=== PATIENT | female | born 1990 | race Caucasian/White ===

== ENCOUNTER 2017-03-30 20:47 | Emergency (ER) | payer OTHER ==
[2017-03-30] MEDS ORDERED: Ondansetron 4 MG Tab.DIS PO ONE ×2 (21:01→22:20)
[2017-03-30] MEDS ORDERED: Dicyclomine 10 MG Cap PO ONE (21:05)
[2017-03-30] MEDS ORDERED: Acetaminophen 500 MG Tab PO ONE (21:05)
--- NOTE | 2017-03-30 21:11 | EDM.PDOC ---
ED HPI GENERAL MEDICAL PROBLEM - General Chief Complaint: Gastrointestinal Problem Stated Complaint: STOMACH PAIN Time Seen by Provider: 03/30/17 21:00 Source of Information: Reports: Patient, Old Records History Limitations: Reports: No Limitations - History of Present Illness INITIAL COMMENTS - FREE TEXT/NARRATIVE: 26 yo female here with abdominal pain and nausea/vomiting. The pain began early this afternoon. The nausea and vomiting began after she attempted to eat dinner. No diarrhea. No fever. No hematemesis. Came from work to the ER. Onset: Today, Gradual Onset Date: 03/30/17 Duration: Hour(s):, Getting Worse Location: Reports: Abdomen Quality: Reports: Other (fullness.) Severity: Moderate Improves with: Reports: Other (vomiting) Worsens with: Reports: Eating Context: Reports: Other (unknown) Associated Symptoms: Reports: Nausea/Vomiting. 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) Right Upper Abdominal Pain Score (Numeric/FACES): 8 - Related Data Allergies Allergy/AdvReac Type Severity Reaction Status Date / Time Penicillins Allergy Hives Verified 03/30/17 21:03 Home Meds: Home Meds Multivitamin [Flintstones] 1 each PO DAILY 06/06/16 [History] Dicyclomine [Bentyl] 20 mg PO QIDACANDBED PRN #10 tablet 03/30/17 [Rx] Past Medical History - Past Health History Medical/Surgical History: Denies Medical/Surgical History Gastrointestinal History: Reports: Chronic Constipation Genitourinary History: Reports: Other (See Below) Other Genitourinary History: frequent UTI's 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: , 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 Psychiatric History: Reports: Anxiety Hematologic History: Reports: Anemia Other Dermatologic History: PUPS - Infectious Disease History Infectious Disease History: Reports: Chicken Pox - Past Surgical History HEENT Surgical History: Reports: Oral Surgery Female Surgical History: Reports: Section Social & Family History - Family History HEENT: Reports: Cataract, Glaucoma, Impaired Vision, Macular Degeneration Cardiac: Reports: Bypass, High Cholesterol, Hypertension, [place], Pacemaker Respiratory: Reports: Asthma, COPD, Cystic Fibrosis, Sleep Apnea GI: Reports: Chronic Constipation OBGYN: Reports: Other (See Below) Other OBGYN Family History: 5 C-SECTIONS FOR MOM Musculoskeletal: Reports: Arthritis, Back pain, Chronic, Fibromyalgia, Neck Pain , Chronic, Osteoporosis Neurological: Reports: CVA, Migraines, Seizure Psychiatric: Reports: Abuse, Victim of, ADD, ADHD, Anxiety, Bipolar, Depression , Emotional Problems, Mood Swings, OCD, Psych Hospitalization(s), PTSD, Suicide Attempt Endocrine/Metabolic: Reports: Diabetes, type II Hematologic: Reports: Other (See Below) Other Hematologic Family History: FACTOR 5 CARRIERS Oncologic: Reports: Breast, Other (See Below) Other Oncologic Family History: THROAT - Tobacco Use Smoking Status *Q: Current Every Day Smoker Years of Tobacco use: 9 Packs/Tins Daily: 0.5 Used Tobacco, but Quit: No Second Hand Smoke Exposure: No - Caffeine Use Caffeine Use: Reports: Coffee, Soda Other Caffeine Use: 3 x's a week - Alcohol Use Days Per Week of Alcohol Use: 0 - Recreational Drug Use Recreational Drug Use: No ED ROS GENERAL - Review of Systems Review Of Systems: See Below Constitutional: Denies: Fever, Chills, Decreased Appetite HEENT: Reports: No Symptoms Respiratory: Reports: No Symptoms Cardiovascular: Reports: No Symptoms Endocrine: Reports: No Symptoms GI/Abdominal: Reports: Abdominal Pain, Nausea, Vomiting. Denies: Black Stool, Bloody Stool, Constipation, Diarrhea, Decreased Appetite, Flatus, Hematemesis, Hematochezia, Melena : Reports: No Symptoms Musculoskeletal: Reports: No Symptoms Skin: Reports: No Symptoms Neurological: Reports: No Symptoms Psychiatric: Reports: No Symptoms ED EXAM, GI/ABD - Physical Exam Exam: See Below Exam Limited By: No Limitations General Appearance: Alert, WD/WN, No Apparent Distress Eyes: Bilateral: Normal Appearance Ears: Normal External Exam, Normal Canal, Hearing Grossly Normal, Normal TMs Nose: Normal Inspection, Normal Mucosa, No Blood Throat/Mouth: Normal Inspection, Normal Lips, Normal Teeth, Normal Gums, Normal Oropharynx, Normal Voice, No Airway Compromise Head: Atraumatic, Normocephalic Neck: Normal Inspection, Supple Respiratory/Chest: No Respiratory Distress, Lungs Clear, Normal Breath Sounds, No Accessory Muscle Use Cardiovascular: Regular Rate, Rhythm, No Edema GI/Abdominal Exam: Soft, No Distention, Tender (diffuse tenderness), Abnormal Bowel Sounds (somewhat increased.). No: Distended, Guarding, Rigid, Rebound Back Exam: Normal Inspection Extremities: Normal Inspection, Normal Range of Motion, Non-Tender, No Pedal Edema Neurological: Alert, Oriented, CN II-XII Intact, Normal Cognition, No Motor/ Sensory Deficits Psychiatric: Normal Affect, Normal Mood Skin Exam: Warm, Dry, Intact, Normal Color, No Rash Lymphatic: No Adenopathy Course - Vital Signs Text/Narrative:: Zofran ODT 4 mg SL, acetaminophen 1000 mg po, dicyclomine 20 mg po Orthostats-negative Last Recorded V/S: Last Vital Signs Temp 36.3 C 03/30/17 21:04 Pulse 93 03/30/17 21:04 Resp 14 03/30/17 21:04 BP 110/67 03/30/17 21:04 Pulse Ox 100 03/30/17 21:04 Orthostatic Blood Pressure [ 116/64 Standing] Orthostatic Blood Pressure [ 117/85 Sitting] Orthostatic Blood Pressure [ 120/58 Supine] - Orders/Labs/Meds Orders: Active Orders 24 hr Category Date Time Status Orthostatic Vital Signs [RC] ASDIRECTED Care 03/30/17 21:04 Active Labs: Laboratory Tests 03/30/17 03/30/17 Range/Units 21:15 21:15 WBC 7.3 (4.5-12.0) X10-3/uL RBC 4.48 (3.23-5.20) x10(6)uL Hgb 13.0 D (11.5-15.5) g/dL Hct 38.0 D (30.0-51.3) % MCV 84.8 (80-96) fL MCH 29.0 (27.7-33.6) pg MCHC 34.3 (32.2-35.4) g/dL RDW 12.6 (11.5-15.5) % Plt Count 227 (125-369) X10(3)uL Sodium 139 (135-145) mmol/L Potassium 3.6 (3.5-5.3) mmol/L Chloride 107 (100-110) mmol/L Carbon Dioxide 25 (23-29) mmol/L BUN 15 (5-20) mg/dL Creatinine 0.8 (0.6-1.3) mg/dL Est Cr Clr Drug Dosing TNP Estimated GFR (MDRD) > 60 (>60) BUN/Creatinine Ratio 18.8 (9-20) Glucose 107 (80-116) mg/dL Calcium 9.1 (8.6-10.2) mg/dL Total Bilirubin 0.4 (0.1-1.3) mg/dL AST 19 D (5-27) IU/L ALT 19 D (14-26) IU/L Alkaline Phosphatase 70 (56-112) IU/L Total Protein 7.3 (6.0-8.0) g/dL Albumin 4.1 (3.5-5.2) g/dL Globulin 3.2 g/dL Albumin/Globulin Ratio 1.3 Meds: Medications Discontinued Medications Generic Name Dose Route Start Last Admin Trade Name Freq PRN Reason Stop Dose Admin Acetaminophen 1,000 mg 03/30/17 21:05 03/30/17 22:04 Tylenol Extra Strength PO 03/30/17 21:06 1,000 mg ONETIME ONE Administration Dicyclomine HCl 20 mg 03/30/17 21:05 03/30/17 22:04 Bentyl PO 03/30/17 21:06 20 mg ONETIME ONE Administration Dicyclomine HCl Confirm 03/30/17 22:03 03/30/17 22:12 Bentyl Administered 03/30/17 22:04 Not Given Dose 10 mg .ROUTE .STK-MED ONE Ondansetron HCl 4 mg 03/30/17 21:01 03/30/17 21:06 Zofran Odt PO 03/30/17 21:02 4 mg ONETIME ONE Administration Departure - Departure Time of Disposition: 22:25 Disposition: Home, Self-Care 01 Condition: Good Clinical Impression: Viral gastroenteritis Nausea and vomiting Qualifiers: Vomiting type: unspecified Vomiting Intractability: non-intractable Qualified Code(s): R11.2 - Nausea with vomiting, unspecified - Discharge Information Prescriptions: Dicyclomine [Bentyl] 20 mg PO QIDACANDBED PRN #10 tablet PRN Reason: Cramping Referrals: Grayson Gray MD [Primary Care Provider] - Forms: ED Department Discharge, ED Return to Work/School Form Care Plan Goals: Clear liquids only tonight, advance diet slowly as tolerated. Use Zofran every 6 hrs as needed for nausea. Take dicyclomine every 6 hrs for diarrhea/cramping. Take acetaminophen for pain or fever control. Rest. Recheck if worse. - My Orders Last 24 Hours: My Active Orders 03/30/17 21:04 Orthostatic Vital Signs [RC] ASDIRECTED - Assessment/Plan Last 24 Hours: My Active Orders 03/30/17 21:04 Orthostatic Vital Signs [RC] ASDIRECTED
[2017-03-30] MEDS ORDERED: Dicyclomine 10 MG Cap ONE (22:03)
[2017-03-30 22:27] VITALS: BP 106/59
== END 2017-03-30 22:26 | disposition home or self-care (01) ==
LOC: FB.ED 20:47
DX: A08.4 Viral intestinal infection, unspecified (principal); F17.210 Nicotine dependence, cigarettes, uncomplicated; Z87.440 Personal history of urinary (tract) infections; Z88.0 Allergy status to penicillin
CPT/HCPCS: 36415; 80053; 85027; 99284; A9270

== ENCOUNTER 2017-11-14 20:26 | Emergency (ER) | payer OTHER ==
[2017-11-14 20:47] VITALS: BP 104/39
[2017-11-14] MEDS ORDERED: Nitrofurantoin Monohydrate/Macrocrystalline 100 MG Cap PO ONE (21:10)
--- NOTE | 2017-11-14 23:40 | ER ---
DATE SEEN: 11/14/2017 REASON FOR VISIT: Dysuria. HISTORY OF PRESENT ILLNESS: This is a 27-year-old female with acute onset of dysuria tonight along with frequency and urgency of urination. In addition, she noticed a blood in the urine. REVIEW OF SYSTEMS: No abdominal pain, fever, chills. No nausea or vomiting. ALLERGIES: Penicillin. PHYSICAL EXAMINATION: GENERAL: She is well hydrated. VITAL SIGNS: Her blood pressure is normal. Pulse is 82. ABDOMEN: Soft. MENTAL STATUS: Alert. SKIN: No pallor or jaundice. LABORATORY DATA: Urine showed 20-30 white cells, moderate bacteria, large occult blood. IMPRESSION: Urinary tract infection. PLAN: Macrobid 100 mg b.i.d. x5 days, drink fluids. Return p.r.n. TIME SEEN: 2118 hours. /[id number] [id number]
== END 2017-11-14 21:14 | disposition home or self-care (01) ==
LOC: FB.ED 20:26
DX: N39.0 Urinary tract infection, site not specified (principal); Z88.0 Allergy status to penicillin
CPT/HCPCS: 81001; 87086; 87088; 87186; 99283; A9270-GY

== ENCOUNTER 2018-03-21 04:32 | Emergency (ER) | payer OTHER ==
[2018-03-21 04:50] VITALS: BP 102/31
--- NOTE | 2018-03-21 05:03 | EDM.PDOC ---
ED HPI GENERAL MEDICAL PROBLEM - General Chief Complaint: Back Pain or Injury Stated Complaint: BACKPAIN Time Seen by Provider: 03/21/18 04:32 Source of Information: Reports: Patient History Limitations: Reports: Physical Impairment (back pain) - History of Present Illness INITIAL COMMENTS - FREE TEXT/NARRATIVE: 27 y.o.w.f AB0 -20 weeks pregnent-came from work to the ed because of severe pain going from her back down to her right heal. No direct trauma. Pt has similar symptoms with her 1st . Pt is not able to walk and work because of her back pain. No N/V/V or any other acute medical issues. BP 102/81 RR 18 Pulse ox 100% Temp 36.8 Pulse 87 Onset Date: 03/21/18 Onset Time: 02:00 Duration: Hour(s):, Intermittent Location: Reports: Back, Lower Extremity, Right Quality: Reports: Ache, Burning, Stabbing, Throbbing Severity: Moderate Improves with: Reports: Rest Worsens with: Reports: Movement Context: Reports: Other (h/o back pain) Associated Symptoms: Reports: No Other Symptoms low back Pain Score (Numeric/FACES): 10 - Related Data Allergies Allergy/AdvReac Type Severity Reaction Status Date / Time Penicillins Allergy Hives Verified 03/21/18 04:43 Home Meds: Home Meds NK [No Known Home Meds] 11/14/17 [History] Past Medical History - Past Health History Medical/Surgical History: Denies Medical/Surgical History Gastrointestinal History: Reports: Chronic Constipation Genitourinary History: Reports: Other (See Below) Other Genitourinary History: frequent UTI's 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: , 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 Psychiatric History: Reports: Anxiety Hematologic History: Reports: Anemia Dermatologic History: Reports: Other (See Below) Other Dermatologic History: PUPS - Infectious Disease History Infectious Disease History: Reports: Chicken Pox - Past Surgical History HEENT Surgical History: Reports: Oral Surgery Female Surgical History: Reports: Section Social & Family History - Family History HEENT: Reports: Cataract, Glaucoma, Impaired Vision, Macular Degeneration Cardiac: Reports: Bypass, High Cholesterol, Hypertension, [place], Pacemaker Respiratory: Reports: Asthma, COPD, Cystic Fibrosis, Sleep Apnea GI: Reports: Chronic Constipation OBGYN: Reports: Other (See Below) Other OBGYN Family History: 5 C-SECTIONS FOR MOM Musculoskeletal: Reports: Arthritis, Back pain, Chronic, Fibromyalgia, Neck Pain , Chronic, Osteoporosis Neurological: Reports: CVA, Migraines, Seizure Psychiatric: Reports: Abuse, Victim of, ADD, ADHD, Anxiety, Bipolar, Depression , Emotional Problems, Mood Swings, OCD, Psych Hospitalization(s), PTSD, Suicide Attempt Endocrine/Metabolic: Reports: Diabetes, type II Hematologic: Reports: Other (See Below) Other Hematologic Family History: FACTOR 5 CARRIERS Oncologic: Reports: Breast, Other (See Below) Other Oncologic Family History: THROAT - Tobacco Use Smoking Status *Q: Current Every Day Smoker Years of Tobacco use: 15 Packs/Tins Daily: 0.5 - Caffeine Use Caffeine Use: Reports: Soda Other Caffeine Use: 3 x's a week - Recreational Drug Use Recreational Drug Use: No ED ROS GENERAL - Review of Systems Review Of Systems: See Below Constitutional: Reports: No Symptoms HEENT: Reports: No Symptoms Respiratory: Reports: No Symptoms Cardiovascular: Reports: No Symptoms Endocrine: Reports: No Symptoms GI/Abdominal: Reports: No Symptoms : Reports: No Symptoms Musculoskeletal: Reports: Back Pain Skin: Reports: No Symptoms Neurological: Reports: No Symptoms Psychiatric: Reports: No Symptoms Hematologic/Lymphatic: Reports: No Symptoms Immunologic: Reports: No Symptoms ED EXAM,LOWER BACK PAIN/INJURY - Physical Exam Exam: See Below Exam Limited By: No Limitations General Appearance: Alert, WD/WN, Mild Distress Eye Exam: Bilateral Eye: Normal Inspection Ears: Normal External Exam Nose: Normal Inspection Throat/Mouth: Normal Inspection, Normal Lips, Normal Voice, No Airway Compromise Head: Atraumatic, Normocephalic Neck: Normal Inspection, Supple, Non-Tender, Full Range of Motion Respiratory/Chest: No Respiratory Distress, Lungs Clear, Normal Breath Sounds, No Accessory Muscle Use, Chest Non-Tender Cardiovascular: Normal Peripheral Pulses, Regular Rate, Rhythm, No Edema, No Gallop, No JVD, No Murmur, No Rub GI/Abdominal: Normal Bowel Sounds, Soft, Non-Tender, No Organomegaly, No Distention, No Abnormal Bruit, No Mass, Pelvis Stable (Female) Exam: Deferred Rectal (Female) Exam: Deferred Back Exam: Normal Inspection, Decreased Range of Motion, Paraspinal Tenderness Extremities: Normal Inspection Neurological: Alert, Normal Mood/Affect, CN II-XII Intact, Abnormal Gait (due to back pain), Straight Leg Raise (R) Psychiatric: Normal Affect, Normal Mood Skin Exam: Warm, Dry, Intact, Normal Color, No Rash Lymphatic: No Adenopathy Course - Vital Signs Text/Narrative:: 27 y.o.w.f AB0 -20 weeks pregnent-came from work to the ed because of severe pain going from her back down to her right heal. No direct trauma. Pt has similar symptoms with her 1st . Pt is not able to walk and work because of her back pain. No N/V/V or any other acute medical issues. BP 102/81 RR 18 Pulse ox 100% Temp 36.8 Pulse 87 PE: 27 y.o.w.f with low back pain going own her right leg Impression: back pain with sciatica, 20 weeks Tx: Ice Reexam: improved Plan: D/C with instructions Last Recorded V/S: Last Vital Signs Temp 36.6 C 03/21/18 04:32 Pulse 84 03/21/18 04:32 Resp 18 03/21/18 04:32 BP 102/31 L 03/21/18 04:32 Pulse Ox 100 03/21/18 04:32 Departure - Departure Time of Disposition: 05:03 Disposition: Home, Self-Care 01 Condition: Good Clinical Impression: Back pain affecting in second trimester Back pain Qualifiers: Back pain location: low back pain Chronicity: unspecified Back pain laterality : right Sciatica presence: with sciatica Sciatica laterality: sciatica of right side Qualified Code(s): M54.41 - Lumbago with sciatica, right side - Discharge Information Instructions: Back Pain in , Back Pain, Adult, [id number] Referrals: Grayson Gray MD [Primary Care Provider] - Forms: ED Department Discharge, ED Return to Work/School Form Additional Instructions: Please apply ice to lower back, please take tylenol for pain, elevate legs, Please f/u with your PMD in next 3 days. Please come back if your symptoms get worse acutely
== END 2018-03-21 05:14 | disposition home or self-care (01) ==
LOC: FB.ED 04:32
DX: O99.89 Other specified diseases and conditions complicating pregnancy, childbirth and the puerperium (principal); M54.41 Lumbago with sciatica, right side; E11.9 Type 2 diabetes mellitus without complications; I10 Essential (primary) hypertension; J44.9 Chronic obstructive pulmonary disease, unspecified; F17.210 Nicotine dependence, cigarettes, uncomplicated; Z3A.20 20 weeks gestation of pregnancy; Z88.0 Allergy status to penicillin
CPT/HCPCS: 99283

== ENCOUNTER 2018-05-31 20:06 | Emergency (ER) | payer OTHER, MEDICAID ==
[2018-05-31] MEDS ORDERED: Lactated Ringers 1,000 ML IV ONE (22:08)
[2018-05-31] MEDS ORDERED: Sodium Chloride 0.9% 10 ML Syringe FLUSH PRN (22:09)
--- NOTE | 2018-05-31 22:14 | EDM.PDOC ---
ED HPI GENERAL MEDICAL PROBLEM - General Chief Complaint: Respiratory Problem Stated Complaint: SOB Time Seen by Provider: 05/31/18 22:10 Source of Information: Reports: Patient History Limitations: Reports: No Limitations - History of Present Illness INITIAL COMMENTS - FREE TEXT/NARRATIVE: Near syncopal episode yesterday and today. Has had N/V x 3 days. No diarrhea. Denies abdominal pain. Had small amount of pink blood per rectum 2 days ago. Denies headache or chest pain. Patient is A3, currently @30 wks with EDC of 08/04/19. Patient reports decreased movement. 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 Musculoskeletal History: Reports: Other (See Below) Other Musculoskeletal History: left hip goes out,sl curvature of spine ,hx of l foot fx Psychiatric History: Reports: Anxiety Hematologic History: Reports: Anemia Dermatologic History: Reports: Other (See Below) Other Dermatologic History: PUPS - Infectious Disease History Infectious Disease History: Reports: Chicken Pox - Past Surgical History HEENT Surgical History: Reports: Oral Surgery Female Surgical History: Reports: Section Social & Family History - Family History Family Medical History: Noncontributory HEENT: Reports: Cataract, Glaucoma, Impaired Vision, Macular Degeneration Cardiac: Reports: Bypass, High Cholesterol, Hypertension, [place], Pacemaker Respiratory: Reports: Asthma, COPD, Cystic Fibrosis, Sleep Apnea GI: Reports: Chronic Constipation OBGYN: Reports: Other (See Below) Other OBGYN Family History: 5 C-SECTIONS FOR MOM Musculoskeletal: Reports: Arthritis, Back pain, Chronic, Fibromyalgia, Neck Pain , Chronic, Osteoporosis Neurological: Reports: CVA, Migraines, Seizure Psychiatric: Reports: Abuse, Victim of, ADD, ADHD, Anxiety, Bipolar, Depression , Emotional Problems, Mood Swings, OCD, Psych Hospitalization(s), PTSD, Suicide Attempt Endocrine/Metabolic: Reports: Diabetes, type II Hematologic: Reports: Other (See Below) Other Hematologic Family History: FACTOR 5 CARRIERS Oncologic: Reports: Breast, Other (See Below) Other Oncologic Family History: THROAT - Tobacco Use Smoking Status *Q: Current Every Day Smoker Tobacco Use Within Last Twelve Months: Cigarettes - Caffeine Use Caffeine Use: Reports: Coffee Other Caffeine Use: 1-2/day - Alcohol Use Alcohol Use History: No - Recreational Drug Use Recreational Drug Use: No ED ROS GENERAL - Review of Systems Review Of Systems: ROS reveals no pertinent complaints other than HPI. ED EXAM, GENERAL - Physical Exam Exam: See Below Exam Limited By: No Limitations General Appearance: Alert, WD/WN, No Apparent Distress Eye Exam: Bilateral Eye: EOMI, PERRL Ears: Normal External Exam, Normal Canal, Normal TMs Nose: Normal Inspection, Normal Mucosa Throat/Mouth: Normal Inspection, Normal Lips, Normal Oropharynx, Normal Voice, No Airway Compromise Head: Atraumatic, Normocephalic Neck: Normal Inspection, Supple Respiratory/Chest: No Respiratory Distress, Lungs Clear, Normal Breath Sounds Cardiovascular: Regular Rate, Rhythm, No Murmur GI/Abdominal: Non-Tender Back Exam: Full Range of Motion Extremities: Normal Range of Motion Neurological: Alert, No Motor/Sensory Deficits Skin Exam: Warm, Dry, Intact EKG INTERPRETATION EKG Date: 05/31/18 Time: 22:35 Rhythm: NSR Rate (Beats/Min): 66 [place]: Normal P-Wave: Present QRS: Normal ST-T: Normal QT: Normal Course - Vital Signs Last Recorded V/S: Last Vital Signs Temp 36.8 C 05/31/18 20:06 Pulse 91 05/31/18 20:06 Resp 18 05/31/18 20:06 BP 96/63 05/31/18 20:06 Pulse Ox 99 05/31/18 20:06 Orthostatic Blood Pressure [ 98/50 Standing] Orthostatic Blood Pressure [ 97/52 Sitting] Orthostatic Blood Pressure [ 96/60 Supine] - Orders/Labs/Meds Orders: Active Orders 24 hr Category Date Time Status EKG Documentation Completion [RC] ASDIRECTED Care 05/31/18 22:09 Active Sodium Chloride 0.9% [Saline Flush] Med 05/31/18 22:09 Active 10 ml FLUSH ASDIRECTED PRN Saline Lock Insert [OM.PC] Routine Oth 05/31/18 22:09 Ordered EKG 12 Lead [EK] Stat Ther 05/31/18 22:08 Ordered Medication Orders Sodium Chloride (Saline Flush) 10 ml FLUSH ASDIRECTED PRN PRN Reason: Keep Vein Open Last Admin: 05/31/18 22:31 Dose: 10 ml Labs: Laboratory Tests 05/31/18 05/31/18 05/31/18 Range/Units 22:15 22:15 22:55 WBC 10.2 (4.5-12.0) X10-3/uL RBC 3.37 (3.23-5.20) x10(6)uL Hgb 10.3 L (11.5-15.5) g/dL Hct 30.0 (30.0-51.3) % MCV 88.9 (80-96) fL MCH 30.5 (27.7-33.6) pg MCHC 34.2 (32.2-35.4) g/dL RDW 12.2 (11.5-15.5) % Plt Count 241 (125-369) X10(3)uL MPV 8.0 (7.4-10.4) fL Neut % (Auto) 72.8 (46-82) % Lymph % (Auto) 17.9 (13-37) % [place] % (Auto) 6.5 (4-12) % Eos % (Auto) 3 (1.0-5.0) % Baso % (Auto) 0 (0-2) % Neut # (Auto) 7.4 (1.6-8.3) # Lymph # (Auto) 1.8 (0.6-5.0) # [place] # (Auto) 0.7 (0.0-1.3) # Eos # (Auto) 0.3 (0.0-0.8) # Baso # (Auto) 0.0 (0.0-0.2) # Sodium 137 (135-145) mmol/L Potassium 3.7 (3.5-5.3) mmol/L Chloride 105 (100-110) mmol/L Carbon Dioxide 24 (21-32) mmol/L BUN 10 (7-18) mg/dL Creatinine 0.5 L (0.55-1.02) mg/dL Est Cr Clr Drug Dosing TNP Estimated GFR (MDRD) > 60 (>60) BUN/Creatinine Ratio 20.0 (9-20) Glucose 113 (80-116) mg/dL Calcium 8.4 L (8.6-10.2) mg/dL Total Bilirubin 0.2 (0.1-1.3) mg/dL AST 14 (5-25) IU/L ALT 22 (12-36) U/L Alkaline Phosphatase 107 (56-112) IU/L Total Protein 6.3 (6.0-8.0) g/dL Albumin 2.3 L (3.5-5.2) g/dL Globulin 4.0 g/dL Albumin/Globulin Ratio 0.6 Urine Color Yellow (YELLOW) Urine Appearance Slightly cloudy (CLEAR) Urine pH 5.0 (5.0-6.5) Ur Specific [place] 1.020 (1.010-1.025) Urine Protein Negative (NEGATIVE) mg/dL Urine Glucose (UA) Normal (NEGATIVE) mg/dL Urine Ketones Negative (NEGATIVE) mg/dL Urine Occult Blood Negative (NEGATIVE) Urine Nitrite Negative (NEGATIVE) Urine Bilirubin Small H (NEGATIVE) Urine Urobilinogen 1 H (NEGATIVE) mg/dL Ur Leukocyte Esterase Negative (NEGATIVE) Urine RBC 0-5 (0) Urine WBC 0-5 (0) Ur Squamous Epith Cells Few H (NS,R,O) Amorphous Sediment Moderate Urine Bacteria Few H (NS) Urine Mucus Moderate H (NS) Meds: Medications Generic Name Dose Route Start Last Admin Trade Name Frelidia PRN Reason Stop Dose Admin Sodium Chloride 10 ml 05/31/18 22:09 05/31/18 22:31 Saline Flush FLUSH 10 ml ASDIRECTED PRN Administration Keep Vein Open Discontinued Medications Generic Name Dose Route Start Last Admin Trade Name Freq PRN Reason Stop Dose Admin Lactated Ringer's 1,000 mls @ 999 mls/hr 05/31/18 22:08 05/31/18 22:31 Ringers, Lactated IV 05/31/18 23:08 999 mls/hr BOLUS ONE Administration - Re-Assessments/Exams Free Text/Narrative Re-Assessment/Exam: 05/31/18 23:18 Reactive nonstress test Departure - Departure Time of Disposition: 23:18 Disposition: Home, Self-Care 01 Condition: Good Clinical Impression: Near syncope Qualifiers: Weeks of gestation: 39 weeks Qualified Code(s): Z3A.39 - 39 weeks gestation of - Discharge Information *PRESCRIPTION DRUG MONITORING PROGRAM REVIEWED*: No *COPY OF PRESCRIPTION DRUG MONITORING REPORT IN PATIENT BRENDA: Not Applicable Instructions: Third Trimester of , [id number], Near-Syncope, Easy-to -Read Referrals: Grayson Gray MD [Primary Care Provider] - Forms: ED Department Discharge Additional Instructions: Rest, drink plenty of fluids, follow up with your OB doctor in 2 days. Return to the ER as needed. - My Orders Last 24 Hours: My Active Orders 05/31/18 22:08 EKG 12 Lead [EK] Stat 05/31/18 22:09 EKG Documentation Completion [RC] ASDIRECTED Sodium Chloride 0.9% [Saline Flush] 10 ml FLUSH ASDIRECTED PRN Saline Lock Insert [OM.PC] Routine - Assessment/Plan Last 24 Hours: My Active Orders 05/31/18 22:08 EKG 12 Lead [EK] Stat 05/31/18 22:09 EKG Documentation Completion [RC] ASDIRECTED Sodium Chloride 0.9% [Saline Flush] 10 ml FLUSH ASDIRECTED PRN Saline Lock Insert [OM.PC] Routine
[2018-05-31 23:44] VITALS: BP 102/59
== END 2018-05-31 23:39 | disposition home or self-care (01) ==
LOC: FB.ED 20:06
DX: O99.89 Other specified diseases and conditions complicating pregnancy, childbirth and the puerperium (principal); R55 Syncope and collapse; O99.333 Smoking (tobacco) complicating pregnancy, third trimester; F17.210 Nicotine dependence, cigarettes, uncomplicated; E11.9 Type 2 diabetes mellitus without complications; J44.9 Chronic obstructive pulmonary disease, unspecified; I10 Essential (primary) hypertension; Z88.0 Allergy status to penicillin; Z3A.39 39 weeks gestation of pregnancy
CPT/HCPCS: 36415; 80053; 81001; 85025; 93005; 96360; 99211; 99285; J7050; J7120

== ENCOUNTER 2019-02-19 13:51 | Emergency (ER) | payer BC, MEDICAID, OTHER ==
[2019-02-19] MEDS ORDERED: Sodium Chloride 0.9% 10 ML Syringe FLUSH PRN (14:23)
--- NOTE | 2019-02-19 14:29 | EDM.PDOC ---
ED HPI GENERAL MEDICAL PROBLEM - General Chief Complaint: Cardiovascular Problem Stated Complaint: CHEST PAIN & BACK PAIN Time Seen by Provider: 02/19/19 14:24 Source of Information: Reports: Patient History Limitations: Reports: No Limitations - History of Present Illness INITIAL COMMENTS - FREE TEXT/NARRATIVE: Presents with 2 weeks of left sided pleuritic chest pain radiating to mid back and left upper arm, associated with intermittent left arm numbness. Denies SOB. She has had a productive cough for 2 weeks, 6 month old son was recently diagnosed with pneumonia. No prior h/o CAD or DVT/PE. Mother and Aunt have Factor V Leiden deficiency. Duration: Week(s): (2) Location: Reports: Chest, Back, Upper Extremity, Left Quality: Reports: Dull Severity: Moderate Left Chest Pain Score (Numeric/FACES): 4 - Related Data Allergies Allergy/AdvReac Type Severity Reaction Status Date / Time Penicillins Allergy Hives Verified 05/31/18 21:33 Home Meds: Home Meds Pnv with Ca,No.72/Iron/Fa [Pnv Plus Multivit Tab] 1 tab PO DAILY [History] Pantoprazole Sodium 40 mg PO DAILY 08/03/18 [History] Azithromycin [Zithromax] 250 - 500 mg PO DAILY 5 Days #6 tab 02/19/19 [Rx] Ibuprofen 600 mg PO Q6H PRN #20 tablet 02/19/19 [Rx] Past Medical History Cardiovascular History: Denies: Blood Clots/VTE/DVT, CAD Gastrointestinal History: Reports: Other (See Below) Other Gastrointestinal History: had some pink rectal discharge ended 2 days ago Genitourinary History: Reports: Other (See Below) Other Genitourinary History: frequent UTI's 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 neck gets pinched and i can't crack it Psychiatric History: Reports: Anxiety Hematologic History: Reports: Anemia Dermatologic History: Reports: Other (See Below) Other Dermatologic History: PUPS - Infectious Disease History Infectious Disease History: Reports: Chicken Pox - Past Surgical History HEENT Surgical History: Reports: Oral Surgery Female Surgical History: Reports: Section Social & Family History - Family History Family Medical History: Noncontributory HEENT: Reports: Cataract, Glaucoma, Impaired Vision, Macular Degeneration Cardiac: Reports: Bypass, High Cholesterol, Hypertension, [place], Pacemaker Respiratory: Reports: Asthma, COPD, Cystic Fibrosis, Sleep Apnea GI: Reports: Chronic Constipation OBGYN: Reports: Other (See Below) Other OBGYN Family History: 5 C-SECTIONS FOR MOM Musculoskeletal: Reports: Arthritis, Back pain, Chronic, Fibromyalgia, Neck Pain , Chronic, Osteoporosis Neurological: Reports: CVA, Migraines, Seizure Psychiatric: Reports: Abuse, Victim of, ADD, ADHD, Anxiety, Bipolar, Depression , Emotional Problems, Mood Swings, OCD, Psych Hospitalization(s), PTSD, Suicide Attempt Endocrine/Metabolic: Reports: Diabetes, type II Hematologic: Reports: Other (See Below) Other Hematologic Family History: FACTOR 5 CARRIERS Oncologic: Reports: Breast, Other (See Below) Other Oncologic Family History: THROAT - Tobacco Use Smoking Status *Q: Current Every Day Smoker Tobacco Use Within Last Twelve Months: Cigarettes - Caffeine Use Caffeine Use: Reports: Coffee Other Caffeine Use: occasional ED ROS GENERAL - Review of Systems Review Of Systems: ROS reveals no pertinent complaints other than HPI. ED EXAM, GENERAL - Physical Exam Exam: See Below Exam Limited By: No Limitations General Appearance: Alert, WD/WN, No Apparent Distress Ears: Normal External Exam Nose: Normal Inspection Throat/Mouth: No Airway Compromise Head: Atraumatic, Normocephalic Neck: Normal Inspection, Full Range of Motion Respiratory/Chest: No Respiratory Distress, Lungs Clear, Normal Breath Sounds Cardiovascular: Regular Rate, Rhythm, No Edema, No Murmur, Other (No chest wall tenderness) Peripheral Pulses: 2+: Radial (L) GI/Abdominal: No Distention Back Exam: Normal Inspection, Full Range of Motion. No: CVA Tenderness (R), CVA Tenderness (L), Paraspinal Tenderness, Vertebral Tenderness Extremities: Normal Inspection, Normal Range of Motion, Non-Tender, No Pedal Edema, Normal Capillary Refill Neurological: Alert, Normal Cognition, No Motor/Sensory Deficits Psychiatric: Normal Affect, Normal Mood Skin Exam: Warm, Dry, Intact, Normal Color EKG INTERPRETATION EKG Date: 02/19/19 Time: 14:09 Rhythm: NSR Rate (Beats/Min): 79 [place]: Normal P-Wave: Present QRS: Normal ST-T: Normal QT: Normal Course - Vital Signs Last Recorded V/S: Last Vital Signs Temp 36.6 C 02/19/19 13:51 Pulse 84 02/19/19 13:51 Resp 18 02/19/19 13:51 BP 127/63 02/19/19 13:51 Pulse Ox 98 02/19/19 13:51 - Orders/Labs/Meds Orders: Active Orders 24 hr Category Date Time Status EKG Documentation Completion [RC] ASDIRECTED Care 02/19/19 14:16 Active CXR [Chest 1V Frontal] [CR] Stat Exams 02/19/19 14:22 Taken Sodium Chloride 0.9% [Saline Flush] Med 02/19/19 14:23 Active 10 ml FLUSH ASDIRECTED PRN Saline Lock Insert [OM.PC] Routine Oth 02/19/19 14:23 Ordered EKG 12 Lead [EK] Stat Ther 02/19/19 14:15 Ordered Medication Orders Sodium Chloride (Saline Flush) 10 ml FLUSH ASDIRECTED PRN PRN Reason: Keep Vein Open Last Admin: 02/19/19 15:34 Dose: 10 ml Labs: Laboratory Tests 02/19/19 02/19/19 02/19/19 Range/Units 14:40 14:40 14:40 WBC 9.8 (4.5-12.0) X10-3/uL RBC 4.49 (3.23-5.20) x10(6)uL Hgb 13.5 (11.5-15.5) g/dL Hct 39.1 D (30.0-51.3) % MCV 87.0 (80-96) fL MCH 30.0 (27.7-33.6) pg MCHC 34.5 (32.2-35.4) g/dL RDW 12.5 (11.5-15.5) % Plt Count 256 (125-369) X10(3)uL MPV 8.4 (7.4-10.4) fL Neut % (Auto) 74.5 (46-82) % Lymph % (Auto) 17.6 (13-37) % [place] % (Auto) 5.2 (4-12) % Eos % (Auto) 2 (1.0-5.0) % Baso % (Auto) 0 (0-2) % Neut # (Auto) 7.4 (1.6-8.3) # Lymph # (Auto) 1.7 (0.6-5.0) # [place] # (Auto) 0.5 (0.0-1.3) # Eos # (Auto) 0.2 (0.0-0.8) # Baso # (Auto) 0.0 (0.0-0.2) # PT 9.3 (8.7-11.1) INR 0.96 (0.89-1.13) APTT 25.1 (24.4-33.2) SECONDS D-Dimer, Quantitative 0.19 (0.0-0.59) mg/LFEU Sodium 143 (135-145) mmol/L Potassium 4.0 (3.5-5.3) mmol/L Chloride 107 (100-110) mmol/L Carbon Dioxide 26 (21-32) mmol/L BUN 15 (7-18) mg/dL Creatinine 0.9 (0.55-1.02) mg/dL Est Cr Clr Drug Dosing 73.60 mL/min Estimated GFR (MDRD) > 60 (>60) BUN/Creatinine Ratio 16.7 (9-20) Glucose 126 H (80-116) mg/dL Calcium 8.7 (8.6-10.2) mg/dL Total Bilirubin 0.2 (0.1-1.3) mg/dL AST 24 D (5-25) IU/L ALT 45 H D (12-36) U/L Alkaline Phosphatase 94 (56-112) IU/L Troponin I (<0.017-0.056) ng/mL Total Protein 6.8 (6.0-8.0) g/dL Albumin 3.5 (3.5-5.2) g/dL Globulin 3.3 g/dL Albumin/Globulin Ratio 1.1 Urine Color (YELLOW) Urine Appearance (CLEAR) Urine pH (5.0-6.5) Ur Specific [place] (1.010-1.025) Urine Protein (NEGATIVE) mg/dL Urine Glucose (UA) (NORMAL) mg/dL Urine Ketones (NEGATIVE) mg/dL Urine Occult Blood (NEGATIVE) Urine Nitrite (NEGATIVE) Urine Bilirubin (NEGATIVE) Urine Urobilinogen (NEGATIVE) mg/dL Ur Leukocyte Esterase (NEGATIVE) Urine RBC (0-5) Urine WBC (0-5) Ur Squamous Epith Cells (NS,R,O) Urine Bacteria (NS) Urine HCG, Qual (NEGATIVE) 02/19/19 02/19/19 02/19/19 Range/Units 14:40 14:45 14:45 WBC (4.5-12.0) X10-3/uL RBC (3.23-5.20) x10(6)uL Hgb (11.5-15.5) g/dL Hct (30.0-51.3) % MCV (80-96) fL MCH (27.7-33.6) pg MCHC (32.2-35.4) g/dL RDW (11.5-15.5) % Plt Count (125-369) X10(3)uL MPV (7.4-10.4) fL Neut % (Auto) (46-82) % Lymph % (Auto) (13-37) % [place] % (Auto) (4-12) % Eos % (Auto) (1.0-5.0) % Baso % (Auto) (0-2) % Neut # (Auto) (1.6-8.3) # Lymph # (Auto) (0.6-5.0) # [place] # (Auto) (0.0-1.3) # Eos # (Auto) (0.0-0.8) # Baso # (Auto) (0.0-0.2) # PT (8.7-11.1) INR (0.89-1.13) APTT (24.4-33.2) SECONDS D-Dimer, Quantitative (0.0-0.59) mg/LFEU Sodium (135-145) mmol/L Potassium (3.5-5.3) mmol/L Chloride (100-110) mmol/L Carbon Dioxide (21-32) mmol/L BUN (7-18) mg/dL Creatinine (0.55-1.02) mg/dL Est Cr Clr Drug Dosing mL/min Estimated GFR (MDRD) (>60) BUN/Creatinine Ratio (9-20) Glucose (80-116) mg/dL Calcium (8.6-10.2) mg/dL Total Bilirubin (0.1-1.3) mg/dL AST (5-25) IU/L ALT (12-36) U/L Alkaline Phosphatase (56-112) IU/L Troponin I < 0.017 L (<0.017-0.056) ng/mL Total Protein (6.0-8.0) g/dL Albumin (3.5-5.2) g/dL Globulin g/dL Albumin/Globulin Ratio Urine Color Yellow (YELLOW) Urine Appearance Clear (CLEAR) Urine pH 5.0 (5.0-6.5) Ur Specific [place] 1.020 (1.010-1.025) Urine Protein Negative (NEGATIVE) mg/dL Urine Glucose (UA) Normal (NORMAL) mg/dL Urine Ketones 15 H (NEGATIVE) mg/dL Urine Occult Blood Negative (NEGATIVE) Urine Nitrite Negative (NEGATIVE) Urine Bilirubin Negative (NEGATIVE) Urine Urobilinogen 1 H (NEGATIVE) mg/dL Ur Leukocyte Esterase Negative (NEGATIVE) Urine RBC 0-5 (0-5) Urine WBC 0-5 (0-5) Ur Squamous Epith Cells Moderate H (NS,R,O) Urine Bacteria Few H (NS) Urine HCG, Qual Negative (NEGATIVE) Meds: Medications Generic Name Dose Route Start Last Admin Trade Name Freq PRN Reason Stop Dose Admin Sodium Chloride 10 ml 02/19/19 14:23 02/19/19 15:34 Saline Flush FLUSH 10 ml ASDIRECTED PRN Administration Keep Vein Open Discontinued Medications Generic Name Dose Route Start Last Admin Trade Name Freq PRN Reason Stop Dose Admin Ketorolac Tromethamine 30 mg 02/19/19 15:18 02/19/19 15:33 Toradol IVPUSH 02/19/19 15:19 30 mg ONETIME ONE Administration - Radiology Interpretation Free Text/Narrative:: CXR: No acute process - Re-Assessments/Exams Free Text/Narrative Re-Assessment/Exam: 02/19/19 15:59 Symptoms improved after Toradol 30 mg IV. Departure - Departure Time of Disposition: 15:59 Disposition: Home, Self-Care 01 Condition: Good Clinical Impression: Bronchitis, Pleurisy Prescriptions: Azithromycin [Zithromax] 250 - 500 mg PO DAILY 5 Days #6 tab Ibuprofen 600 mg PO Q6H PRN #20 tablet PRN Reason: Pain Instructions: Pleurisy, [id number], Acute Bronchitis, Adult Referrals: Grayson Gray MD [Primary Care Provider] - Forms: ED Department Discharge Additional Instructions: Fill prescriptions for Zithromax and Ibuprofen and take as directed. Follow up with your primary physician in 3-4 days if symptoms don't improve. Return to the ER if symptoms worsen. - My Orders Last 24 Hours: My Active Orders 02/19/19 14:15 EKG 12 Lead [EK] Stat 02/19/19 14:16 EKG Documentation Completion [RC] ASDIRECTED 02/19/19 14:22 CXR [Chest 1V Frontal] [CR] Stat 02/19/19 14:23 Sodium Chloride 0.9% [Saline Flush] 10 ml FLUSH ASDIRECTED PRN Saline Lock Insert [OM.PC] Routine - Assessment/Plan Last 24 Hours: My Active Orders 02/19/19 14:15 EKG 12 Lead [EK] Stat 02/19/19 14:16 EKG Documentation Completion [RC] ASDIRECTED 02/19/19 14:22 CXR [Chest 1V Frontal] [CR] Stat 02/19/19 14:23 Sodium Chloride 0.9% [Saline Flush] 10 ml FLUSH ASDIRECTED PRN Saline Lock Insert [OM.PC] Routine
[2019-02-19] MEDS ORDERED: Ketorolac 30 MG/ML SDV IVPUSH ONE (15:18)
[2019-02-19 21:19] VITALS: BP 102/40
== END 2019-02-19 16:30 | disposition home or self-care (01) ==
LOC: FB.ED 13:51
DX: J40 Bronchitis, not specified as acute or chronic (principal); R09.1 Pleurisy; F41.9 Anxiety disorder, unspecified; Z88.0 Allergy status to penicillin; Z79.899 Other long term (current) drug therapy
CPT/HCPCS: 36415; 71045; 80053; 81001; 81025; 84484; 85025; 85379; 85610; 85730; 93005; 96374; 99284; J1885

== ENCOUNTER 2019-06-13 19:04 | Emergency (ER) | payer BC, MEDICAID ==
[2019-06-13 19:21] VITALS: BP 104/63; PULSE 91
--- NOTE | 2019-06-13 19:41 | EDM.PDOC ---
ED HPI GENERAL MEDICAL PROBLEM - General Chief Complaint: General Stated Complaint: COUGH Time Seen by Provider: 06/13/19 19:25 Source of Information: Reports: Patient - History of Present Illness INITIAL COMMENTS - FREE TEXT/NARRATIVE: Patient is a 29 YO WF who presented to the ED because of cough and cold productive of yellowish phlegm for 2 weeks. She denies any fever or chills or dyspnea. - Related Data Allergies Allergy/AdvReac Type Severity Reaction Status Date / Time Penicillins Allergy Hives Verified 06/13/19 19:34 Home Meds: Home Meds Pnv with Ca,No.72/Iron/Fa [Pnv Plus Multivit Tab] 1 tab PO DAILY [History] Pantoprazole Sodium 40 mg PO DAILY 08/03/18 [History] Azithromycin [Zithromax] 250 - 500 mg PO DAILY 5 Days #6 tab 02/19/19 [Rx] Ibuprofen 600 mg PO Q6H PRN #20 tablet 02/19/19 [Rx] Azithromycin [Zithromax] 250 mg PO DAILY #6 tab 06/13/19 [Rx] Codeine/guaiFENesin [guaiFENesin-Codeine Syrup] 10 ml PO Q6H PRN #120 ml [Rx] Past Medical History Gastrointestinal History: Reports: Other (See Below) Other Gastrointestinal History: had some pink rectal discharge ended 2 days ago Genitourinary History: Reports: Other (See Below) Other Genitourinary History: frequent UTI's 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 neck gets pinched and i can't crack it Psychiatric History: Reports: Anxiety Hematologic History: Reports: Anemia Dermatologic History: Reports: Other (See Below) Other Dermatologic History: PUPS - Infectious Disease History Infectious Disease History: Reports: Chicken Pox - Past Surgical History HEENT Surgical History: Reports: Oral Surgery Female Surgical History: Reports: Section Social & Family History - Family History Family Medical History: Noncontributory HEENT: Reports: Cataract, Glaucoma, Impaired Vision, Macular Degeneration Cardiac: Reports: Bypass, High Cholesterol, Hypertension, [place], Pacemaker Respiratory: Reports: Asthma, COPD, Cystic Fibrosis, Sleep Apnea GI: Reports: Chronic Constipation OBGYN: Reports: Other (See Below) Other OBGYN Family History: 5 C-SECTIONS FOR MOM Musculoskeletal: Reports: Arthritis, Back pain, Chronic, Fibromyalgia, Neck Pain , Chronic, Osteoporosis Neurological: Reports: CVA, Migraines, Seizure Psychiatric: Reports: Abuse, Victim of, ADD, ADHD, Anxiety, Bipolar, Depression , Emotional Problems, Mood Swings, OCD, Psych Hospitalization(s), PTSD, Suicide Attempt Endocrine/Metabolic: Reports: Diabetes, type II Hematologic: Reports: Other (See Below) Other Hematologic Family History: FACTOR 5 CARRIERS Oncologic: Reports: Breast, Other (See Below) Other Oncologic Family History: THROAT - Tobacco Use Smoking Status *Q: Current Every Day Smoker Years of Tobacco use: 10 Packs/Tins Daily: 0.5 - Caffeine Use Caffeine Use: Reports: Coffee Other Caffeine Use: occasional ED ROS GENERAL - Review of Systems Review Of Systems: See Below Constitutional: Reports: No Symptoms HEENT: Reports: No Symptoms Respiratory: Reports: Cough, Sputum. Denies: Shortness of Breath, Wheezing Cardiovascular: Reports: No Symptoms Endocrine: Reports: No Symptoms GI/Abdominal: Reports: No Symptoms : Reports: No Symptoms Musculoskeletal: Reports: No Symptoms Skin: Reports: No Symptoms ED EXAM, GENERAL - Physical Exam Exam: See Below Exam Limited By: No Limitations General Appearance: Alert, WD/WN, No Apparent Distress Eye Exam: Bilateral Eye: PERRL Ears: Normal External Exam, Normal Canal Nose: Normal Inspection, Normal Mucosa, No Blood Throat/Mouth: Normal Inspection, Normal Lips, Normal Teeth, Normal Gums, Normal Oropharynx, Normal Voice Head: Atraumatic, Normocephalic Neck: Normal Inspection, Supple, Non-Tender, Full Range of Motion Respiratory/Chest: No Respiratory Distress, Lungs Clear, Rhonchi Cardiovascular: Normal Peripheral Pulses, Regular Rate, Rhythm, No Edema, No Gallop, No JVD, No Murmur GI/Abdominal: Normal Bowel Sounds, Soft, Non-Tender, No Organomegaly, No Distention, No Abnormal Bruit (Female) Exam: Normal External Exam Back Exam: Normal Inspection, Full Range of Motion Extremities: Normal Inspection, Normal Range of Motion Neurological: Alert, Oriented, CN II-XII Intact, Normal Cognition, Normal Gait, Normal Reflexes, No Motor/Sensory Deficits Course - Vital Signs Last Recorded V/S: Last Vital Signs Temp 36.5 C 06/13/19 19:04 Pulse 91 06/13/19 19:04 Resp 17 06/13/19 19:04 BP 104/63 06/13/19 19:04 Pulse Ox 97 06/13/19 19:04 Departure - Departure Time of Disposition: 19:40 Disposition: Home, Self-Care 01 Condition: Good Clinical Impression: Acute bronchitis - Discharge Information *PRESCRIPTION DRUG MONITORING PROGRAM REVIEWED*: No *COPY OF PRESCRIPTION DRUG MONITORING REPORT IN PATIENT BRENDA: No Prescriptions: Azithromycin [Zithromax] 250 mg PO DAILY #6 tab Codeine/guaiFENesin [guaiFENesin-Codeine Syrup] 10 ml PO Q6H PRN #120 ml PRN Reason: Cough Instructions: Acute Bronchitis, Adult Forms: ED Department Discharge Additional Instructions: Increase oral fluids Robitussin with codeine,take 10 ml every 4-6 hours as needed for cough Z-alyce as directed Follow up as needed
== END 2019-06-13 19:46 | disposition home or self-care (01) ==
LOC: FB.ED 19:04
DX: J20.9 Acute bronchitis, unspecified (principal); Z88.0 Allergy status to penicillin; F17.210 Nicotine dependence, cigarettes, uncomplicated
CPT/HCPCS: 99282

== ENCOUNTER 2019-07-31 12:25 | Emergency (ER) | payer BC, MEDICAID ==
[2019-07-31 13:02] VITALS: BP 106/81; PULSE 92
--- NOTE | 2019-07-31 13:23 | EDM.PDOC ---
ED HPI GENERAL MEDICAL PROBLEM - General Chief Complaint: Genitourinary Problem Stated Complaint: UTI Time Seen by Provider: 07/31/19 13:00 Source of Information: Reports: Patient History Limitations: Reports: No Limitations - History of Present Illness INITIAL COMMENTS - FREE TEXT/NARRATIVE: Patient presented to the ED because of dysuria,urgency and frequency x1 week. she denies any fever or chills but c/o nause. 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 neck gets pinched and i can't crack it Psychiatric History: Reports: Anxiety Hematologic History: Reports: Anemia Dermatologic History: Reports: Other (See Below) Other Dermatologic History: PUPS - Infectious Disease History Infectious Disease History: Reports: Chicken Pox - Past Surgical History HEENT Surgical History: Reports: Oral Surgery Female Surgical History: Reports: Section Social & Family History - Family History Family Medical History: Noncontributory HEENT: Reports: Cataract, Glaucoma, Impaired Vision, Macular Degeneration Cardiac: Reports: Bypass, High Cholesterol, Hypertension, [place], Pacemaker Respiratory: Reports: Asthma, COPD, Cystic Fibrosis, Sleep Apnea GI: Reports: Chronic Constipation OBGYN: Reports: Other (See Below) Other OBGYN Family History: 5 C-SECTIONS FOR MOM Musculoskeletal: Reports: Arthritis, Back pain, Chronic, Fibromyalgia, Neck Pain , Chronic, Osteoporosis Neurological: Reports: CVA, Migraines, Seizure Psychiatric: Reports: Abuse, Victim of, ADD, ADHD, Anxiety, Bipolar, Depression , Emotional Problems, Mood Swings, OCD, Psych Hospitalization(s), PTSD, Suicide Attempt Endocrine/Metabolic: Reports: Diabetes, type II Hematologic: Reports: Other (See Below) Other Hematologic Family History: FACTOR 5 CARRIERS Oncologic: Reports: Breast, Other (See Below) Other Oncologic Family History: THROAT - Tobacco Use Smoking Status *Q: Current Every Day Smoker Years of Tobacco use: 12 Packs/Tins Daily: 0.5 - Caffeine Use Caffeine Use: Reports: Coffee Other Caffeine Use: occasional - Recreational Drug Use Recreational Drug Use: No ED ROS GENERAL - Review of Systems Review Of Systems: See Below Constitutional: Reports: No Symptoms HEENT: Reports: No Symptoms, Vision Change Cardiovascular: Reports: No Symptoms Endocrine: Reports: No Symptoms GI/Abdominal: Reports: No Symptoms : Reports: Dysuria, Urgency. Denies: Flank Pain Musculoskeletal: Reports: No Symptoms Skin: Reports: No Symptoms Neurological: Reports: No Symptoms ED EXAM, GI/ABD - Physical Exam Exam: See Below Exam Limited By: No Limitations General Appearance: Alert, WD/WN, No Apparent Distress Ears: Normal External Exam, Normal Canal, Hearing Grossly Normal, Normal TMs Nose: Normal Inspection Throat/Mouth: Normal Inspection, Normal Lips, Normal Teeth, Normal Gums Neck: Normal Inspection, Supple, Non-Tender Respiratory/Chest: No Respiratory Distress, Lungs Clear, Normal Breath Sounds Cardiovascular: Normal Peripheral Pulses, Regular Rate, Rhythm, No Edema GI/Abdominal Exam: Normal Bowel Sounds, Soft, No Organomegaly, No Distention, No Abnormal Bruit, Other (tenderness over the suprapubic area) (Female) Exam: Normal External Exam, Normal Speculum Exam, Normal Bimanual Exam Back Exam: Normal Inspection, Full Range of Motion Extremities: Normal Inspection, Normal Range of Motion Neurological: Alert, Oriented, CN II-XII Intact, Normal Cognition Skin Exam: Warm Course - Vital Signs Last Recorded V/S: Last Vital Signs Temp 36.5 C 07/31/19 12:40 Pulse 92 07/31/19 12:40 Resp 18 07/31/19 12:40 BP 106/81 07/31/19 12:40 Pulse Ox 100 07/31/19 12:40 - Orders/Labs/Meds Orders: Active Orders 24 hr Category Date Time Status CULTURE URINE [RM] Stat Lab 07/31/19 13:20 Ordered Labs: Laboratory Tests 07/31/19 Range/Units 12:50 Urine Color Yellow (YELLOW) Urine Appearance Cloudy (CLEAR) Urine pH 5.0 (5.0-6.5) Ur Specific [place] 1.020 (1.010-1.025) Urine Protein Negative (NEGATIVE) mg/dL Urine Glucose (UA) Normal (NORMAL) mg/dL Urine Ketones Negative (NEGATIVE) mg/dL Urine Occult Blood Moderate H (NEGATIVE) Urine Nitrite Negative (NEGATIVE) Urine Bilirubin Negative (NEGATIVE) Urine Urobilinogen Normal (NEGATIVE) mg/dL Ur Leukocyte Esterase Large H (NEGATIVE) Urine WBC Packed H (0-5) Departure - Departure Time of Disposition: 13:25 Disposition: Home, Self-Care 01 Condition: Good Clinical Impression: UTI, Urinary tract infectious disease - Discharge Information Prescriptions: Sulfamethoxazole/Trimethoprim [Bactrim Ds Tablet] 1 each PO BID #6 tablet Instructions: Urinary Tract Infection, Adult Referrals: Grayson Gray MD [Primary Care Provider] - Forms: ED Department Discharge Additional Instructions: please read discharge instructions on UTI increase oral fluids take bactrim DS twice daily for 3 days Follow up as needed - My Orders Last 24 Hours: My Active Orders 07/31/19 13:20 CULTURE URINE [RM] Stat - Assessment/Plan Last 24 Hours: My Active Orders 07/31/19 13:20 CULTURE URINE [RM] Stat
== END 2019-07-31 13:35 | disposition home or self-care (01) ==
LOC: FB.ED 12:25
DX: N39.0 Urinary tract infection, site not specified (principal); Z88.0 Allergy status to penicillin; F17.210 Nicotine dependence, cigarettes, uncomplicated
CPT/HCPCS: 81001; 87086; 87088; 87186; 99283

== ENCOUNTER 2020-07-22 11:57 | Emergency (ER) | payer MEDICAID, OTHER ==
--- NOTE | 2020-07-22 13:28 | EDM.PDOC ---
ED HPI GENERAL MEDICAL PROBLEM - General Chief Complaint: General Stated Complaint: LUMP UNDER CHIN, 7 1/2 MO Time Seen by Provider: 07/22/20 13:10 Source of Information: Reports: Patient History Limitations: Reports: No Limitations - History of Present Illness INITIAL COMMENTS - FREE TEXT/NARRATIVE: 30-year-old female who reports that today at work she noted a lump under her chin which was more on the left side she had not noted before today. There is no pain associated with it. She reports that her pain is 0/10 in this area. She reports that she is swallowing okay and she has had no dental discomfort or swelling and no change and her taste. She has been able to drink normally. There has been no fever. There has been no nausea or vomiting. She also reports that last night she began to have intermittent pains along her right side. The seemed to come and go and this morning they became quite severe while she was at work and it caused her to leave work about an hour early. Now her pain is essentially gone. But earlier it was up to a 7/10. She reports it was sharp and poking. She has had no dysuria. She has had no hematuria. There is been no vaginal bleeding nor any vaginal fluid leak. The pain was not cyclic but seemed to come and go at various times and lasted for variable periods of time. There are no other associated signs or symptoms. There are no other modifying factors. 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) - Related Data Allergies Allergy/AdvReac Type Severity Reaction Status Date / Time Penicillins Allergy Hives Verified 07/22/20 20:38 Home Meds: Home Meds Pediatric Multivitamin No.49 [Flintstones Gummies] 1 tab PO DAILY 07/22/20 [History] Past Medical History Genitourinary History: Reports: Other (See Below) Other Genitourinary History: frequent UTI's 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: , 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: Musculoskeletal History: Reports: Other (See Below) Other Musculoskeletal History: left hip goes out,sl curvature of spine ,hx of l foot fx Psychiatric History: Reports: Anxiety Hematologic History: Reports: Anemia Dermatologic History: Reports: Other (See Below) - Infectious Disease History Infectious Disease History: Reports: Chicken Pox - Past Surgical History HEENT Surgical History: Reports: Oral Surgery Female Surgical History: Reports: Section (3) Social & Family History - Family History Family Medical History: No Pertinent Family History HEENT: Reports: Cataract, Glaucoma, Impaired Vision, Macular Degeneration Cardiac: Reports: Bypass, High Cholesterol, Hypertension, [place], Pacemaker Respiratory: Reports: Asthma, COPD, Cystic Fibrosis, Sleep Apnea GI: Reports: Chronic Constipation OBGYN: Reports: Other (See Below) Other OBGYN Family History: 5 C-SECTIONS FOR MOM Musculoskeletal: Reports: Arthritis, Back pain, Chronic, Fibromyalgia, Neck Pain, Chronic, Osteoporosis Neurological: Reports: CVA, Migraines, Seizure Psychiatric: Reports: Abuse, Victim of, ADD, ADHD, Anxiety, Bipolar, Depression, Emotional Problems, Mood Swings, OCD, Psych Hospitalization(s), PTSD, Suicide Attempt Endocrine/Metabolic: Reports: Diabetes, type II Hematologic: Reports: Other (See Below) Other Hematologic Family History: FACTOR 5 CARRIERS Oncologic: Reports: Breast, Other (See Below) Other Oncologic Family History: THROAT - Tobacco Use Tobacco Use Status *Q: Current Every Day Tobacco User Years of Tobacco use: 18 Packs/Tins Daily: 0.5 - Caffeine Use Caffeine Use: Reports: Coffee, Energy Drinks, Soda Other Caffeine Use: occasional - Alcohol Use Alcohol Use History: No - Recreational Drug Use Recreational Drug Use: No - Living Situation & Occupation Occupation: Unemployed ED ROS GENERAL - Review of Systems Review Of Systems: See Below Constitutional: Reports: No Symptoms HEENT: Reports: No Symptoms Respiratory: Reports: No Symptoms Cardiovascular: Reports: No Symptoms GI/Abdominal: Reports: Abdominal Pain, Vomiting : Reports: No Symptoms Musculoskeletal: Reports: No Symptoms Skin: Reports: No Symptoms Neurological: Reports: No Symptoms Hematologic/Lymphatic: Reports: No Symptoms Immunologic: Reports: No Symptoms ED EXAM, GENERAL - Physical Exam Exam: See Below Exam Limited By: No Limitations General Appearance: Alert, WD/WN, No Apparent Distress, Other (Patient was sleeping soundly when I came into the room and in no acute distress.) Eye Exam: Bilateral Eye: EOMI, Normal Inspection Ears: Normal External Exam, Hearing Grossly Normal Ear Exam: Bilateral Ear: Auricle Normal Nose: Normal Inspection, Normal Mucosa, No Blood Throat/Mouth: Normal Inspection, Normal Lips, Normal Oropharynx, Normal Voice, No Airway Compromise Head: Atraumatic, Normocephalic Neck: Normal Inspection, Supple, Non-Tender, Full Range of Motion, Other (Nontender 2.5 cm diameter subcutaneous nodule in the left submental area that appears to be lymphadenopathy there is no fluctuance. There is no redness. There is no increase in warmth.) Respiratory/Chest: No Respiratory Distress, Lungs Clear, Normal Breath Sounds, No Accessory Muscle Use, Chest Non-Tender Cardiovascular: Normal Peripheral Pulses, Regular Rate, Rhythm, No Murmur Peripheral Pulses: 2+: Radial (L), Radial (R), Dorsalis Pedis (L), Dorsalis Pedis (R) GI/Abdominal: Normal Bowel Sounds, Soft, Non-Tender, Other (Gravid) Back Exam: Normal Inspection, Full Range of Motion Extremities: Normal Inspection, Normal Range of Motion, Non-Tender, No Pedal Edema, Normal Capillary Refill. No: Pedal Edema Neurological: Alert, Oriented, CN II-XII Intact, Normal Cognition, No Motor/Sensory Deficits Psychiatric: Normal Affect Skin Exam: Warm, Dry, Intact, Normal Color, No Rash Course - Vital Signs Last Recorded V/S: Last Vital Signs Temp 36.4 C 07/22/20 15:12 Pulse 88 07/22/20 15:12 Resp 17 07/22/20 15:12 BP 102/55 L 07/22/20 15:12 Pulse Ox 98 07/22/20 15:12 - Orders/Labs/Meds Labs: Laboratory Tests 07/22/20 Range/Units 13:28 Urine Color Yellow (YELLOW) Urine Appearance Slightly cloudy (CLEAR) Urine pH 7.0 H (5.0-6.5) Ur Specific Hope 1.015 (1.010-1.025) Urine Protein Trace (NEGATIVE) mg/dL Urine Glucose (UA) Normal (NORMAL) mg/dL Urine Ketones Negative (NEGATIVE) mg/dL Urine Occult Blood Negative (NEGATIVE) Urine Nitrite Negative (NEGATIVE) Urine Bilirubin Negative (NEGATIVE) Urine Urobilinogen 1 H (NEGATIVE) mg/dL Ur Leukocyte Esterase Small H (NEGATIVE) Urine RBC 0-5 (0-5) Urine WBC 0-5 (0-5) Ur Squamous Epith Cells Moderate H (NS,R,O) Urine Bacteria Few H (NS) - Re-Assessments/Exams Free Text/Narrative Re-Assessment/Exam: 07/22/20 14:40: Patient's urinalysis was normal. She is resting comfortably now and has no more abdominal pain. Her heart tones were normal at 130 to 140 range. I did discuss her case with Dr. Gray and he felt that the patient should just follow up with him tomorrow. Precautions and reasons for return were discussed with the patient and were placed in her discharge instructions. Departure - Departure Time of Disposition: 14:50 Disposition: Home, Self-Care 01 Condition: Good Clinical Impression: Submental adenopathy, Third trimester - Discharge Information Referrals: Grayson Gray MD [Primary Care Provider] - Forms: ED Department Discharge Additional Instructions: As we discussed, the lump under your chin is most probably a swollen lymph node. There is nothing that needs to be done with this at this time. Your urine test was normal. I discussed you with and he felt that it was okay to go at this point. He does want you to follow up in clinic tomorrow to see him. Back to the emergency department in [place] for worsening abdominal pain, vaginal bleeding, vaginal fluid leakage or any signs of labor. Back to any emergency department for any redness, fever or any other signs of infection in the lump. Sepsis Event Note (ED) - Evaluation Sepsis Screening Result: No Definite Risk - Focused Exam Vital Signs: Vital Signs Temp Pulse Resp BP Pulse Ox 07/22/20 15:12 36.4 C 88 17 102/55 L 98
[2020-07-22 20:40] VITALS: BP 102/55; PULSE 88
== END 2020-07-22 15:15 | disposition home or self-care (01) ==
LOC: FB.ED 11:57
DX: O99.891 Other specified diseases and conditions complicating pregnancy (principal); R59.0 Localized enlarged lymph nodes; O99.333 Smoking (tobacco) complicating pregnancy, third trimester; F17.210 Nicotine dependence, cigarettes, uncomplicated; Z88.0 Allergy status to penicillin
CPT/HCPCS: 81001; 99283

== ENCOUNTER 2021-01-17 22:14 | Emergency (ER) | payer MEDICAID ==
[2021-01-17 22:49] VITALS: BP 128/78; PULSE 116
--- NOTE | 2021-01-17 23:11 | EDM.PDOC ---
ED HPI GENERAL MEDICAL PROBLEM - General Chief Complaint: Skin Complaint Stated Complaint: COVID Time Seen by Provider: 01/17/21 22:20 Source of Information: Reports: Patient History Limitations: Reports: No Limitations - History of Present Illness INITIAL COMMENTS - FREE TEXT/NARRATIVE: c/o rash in groin no yeast infections in past, no itch - Related Data Allergies Allergy/AdvReac Type Severity Reaction Status Date / Time Penicillins Allergy Hives Verified 01/17/21 22:45 Home Meds: Home Meds Pediatric Multivitamin No.49 [Flintstones Gummies] 1 tab PO DAILY 07/22/20 [History] Fluconazole 150 mg PO ASDIRECTED #1 tablet 01/17/21 [Rx] Iron,Carbonyl/Vit C/Vit B12/Fa [Iron 100 Plus Tablet] 1 each PO DAILY 01/17/21 [History] Past Medical History Gastrointestinal History: Reports: Other (See Below) Other Gastrointestinal History: had some pink rectal discharge ended 2 days ago Genitourinary History: Reports: Other (See Below) Other Genitourinary History: frequent UTI's 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: , 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: Musculoskeletal History: Reports: Other (See Below) Other Musculoskeletal History: left hip goes out,sl curvature of spine ,hx of l foot fx Psychiatric History: Reports: Anxiety Hematologic History: Reports: Anemia Dermatologic History: Reports: Other (See Below) Other Dermatologic History: PUPS - Infectious Disease History Infectious Disease History: Reports: Chicken Pox - Past Surgical History HEENT Surgical History: Reports: Oral Surgery Female Surgical History: Reports: Section (3) Social & Family History - Family History Family Medical History: No Pertinent Family History HEENT: Reports: Cataract, Glaucoma, Impaired Vision, Macular Degeneration Cardiac: Reports: Bypass, High Cholesterol, Hypertension, [place], Pacemaker Respiratory: Reports: Asthma, COPD, Cystic Fibrosis, Sleep Apnea GI: Reports: Chronic Constipation OBGYN: Reports: Other (See Below) Other OBGYN Family History: 5 C-SECTIONS FOR MOM Musculoskeletal: Reports: Arthritis, Back pain, Chronic, Fibromyalgia, Neck Pain, Chronic, Osteoporosis Neurological: Reports: CVA, Migraines, Seizure Psychiatric: Reports: Abuse, Victim of, ADD, ADHD, Anxiety, Bipolar, Depression, Emotional Problems, Mood Swings, OCD, Psych Hospitalization(s), PTSD, Suicide Attempt Endocrine/Metabolic: Reports: Diabetes, type II Hematologic: Reports: Other (See Below) Other Hematologic Family History: FACTOR 5 CARRIERS Oncologic: Reports: Breast, Other (See Below) Other Oncologic Family History: THROAT - Tobacco Use Tobacco Use Status *Q: Former Tobacco User Used Tobacco, but Quit: Yes Month/Year Tobacco Last Used: 09/2020 - Caffeine Use Caffeine Use: Reports: Coffee Other Caffeine Use: occasional - Living Situation & Occupation Occupation: Unemployed ED ROS GENERAL - Review of Systems Review Of Systems: See Below Constitutional: Reports: No Symptoms HEENT: Reports: No Symptoms Respiratory: Reports: No Symptoms Cardiovascular: Reports: No Symptoms Endocrine: Reports: No Symptoms GI/Abdominal: Reports: No Symptoms : Reports: No Symptoms Musculoskeletal: Reports: No Symptoms Skin: Reports: Rash Neurological: Reports: No Symptoms Psychiatric: Reports: No Symptoms Hematologic/Lymphatic: Reports: No Symptoms Immunologic: Reports: No Symptoms ED EXAM, SKIN/RASH Exam: See Below Exam Limited By: No Limitations General Appearance: Alert, WD/WN, No Apparent Distress Head: Atraumatic, Normocephalic Neck: Normal Inspection, Supple, Non-Tender, Full Range of Motion. No: Lymphadenopathy (R), Lymphadenopathy (L) Respiratory/Chest: Lungs Clear Cardiovascular: Regular Rate, Rhythm Back Exam: Normal Inspection Extremities: Normal Inspection Neurological: Alert, Oriented, CN II-XII Intact, Abnormal Reflexes Psychiatric: Normal Mood Skin: Other (in moist intertriginous area of thighs are scattered red 5 x 5 mm raised papules most c/w yeast infection, creases spared (not coalescing)) Course - Vital Signs Last Recorded V/S: Last Vital Signs Temp 36.6 C 01/17/21 22:48 Pulse 116 H 01/17/21 22:48 Resp 16 01/17/21 22:48 BP 128/78 01/17/21 22:48 Pulse Ox 98 01/17/21 22:48 - Orders/Labs/Meds Orders: Active Orders 24 hr Category Date Time Status Fluconazole [Diflucan] Med 01/17/21 23:00 Once 150 mg PO ONETIME ONE - Re-Assessments/Exams Free Text/Narrative Re-Assessment/Exam: 01/17/21 23:14 also c/o sharp pain in throat altho o-p wnl, several children have URI, 4 children at home Departure - Departure Time of Disposition: 23:01 Disposition: Home, Self-Care 01 Condition: Good Clinical Impression: Tinea corporis - Discharge Information *PRESCRIPTION DRUG MONITORING PROGRAM REVIEWED*: Not Applicable *COPY OF PRESCRIPTION DRUG MONITORING REPORT IN PATIENT BRENDA: Not Applicable Prescriptions: Fluconazole 150 mg PO ASDIRECTED #1 tablet Referrals: Grayson Gray MD [Primary Care Provider] - Additional Instructions: Avoid chemicals and soaps on the skin. May use a moisturizer or a thin layer of olive oil. For yeast infection, take a second fluconazole 150 mg tab in one week. See your doctor in 2 weeks if you are still having symptoms. Sepsis Event Note (ED) - Evaluation Sepsis Screening Result: No Definite Risk - Focused Exam Vital Signs: Vital Signs Temp Pulse Resp BP Pulse Ox 01/17/21 22:48 36.6 C 116 H 16 128/78 98 - My Orders Last 24 Hours: My Active Orders 01/17/21 23:00 Fluconazole [Diflucan] 150 mg PO ONETIME ONE - Assessment/Plan Last 24 Hours: My Active Orders 01/17/21 23:00 Fluconazole [Diflucan] 150 mg PO ONETIME ONE
[2021-01-17] MEDS: Fluconazole 100 MG Tab PO ONE (23:13)
[2021-01-17] MEDS: Fluconazole 150 MG Tab PO ONE (23:13)
== END 2021-01-17 23:25 | disposition home or self-care (01) ==
LOC: FB.ED 22:14
DX: B35.4 Tinea corporis (principal); Z88.0 Allergy status to penicillin
CPT/HCPCS: 99282; 99283; A9270-GY

== ENCOUNTER 2023-05-19 00:33 | Emergency (ER) | payer MEDICAID ==
[2023-05-19 01:24] VITALS: BP 112/74; PULSE 70
== END 2023-05-19 01:24 | disposition home or self-care (01) ==
LOC: FB.ED 00:33
DX: J02.9 Acute pharyngitis, unspecified (principal); B30.9 Viral conjunctivitis, unspecified; F17.210 Nicotine dependence, cigarettes, uncomplicated; Z88.0 Allergy status to penicillin
CPT/HCPCS: 99284

== ENCOUNTER 2025-02-20 20:58 | Emergency (ER) | payer BC ==
[2025-02-20 21:17] VITALS: BP 109/70; PULSE 102
== END 2025-02-20 22:12 | disposition home or self-care (01) ==
LOC: FB.ED 20:58
DX: J02.0 Streptococcal pharyngitis (principal); F17.210 Nicotine dependence, cigarettes, uncomplicated; Z88.0 Allergy status to penicillin
CPT/HCPCS: 99283

== ENCOUNTER 2025-03-10 17:58 | Emergency (ER) | payer BC ==
[2025-03-10 18:51] LABS: BASOPHILS ABSOLUTE AUTO 0.0 x10-3/uL (0.0-0.1); BASOPHILS PERCENT AUTO 0.4 % (0.2-1.5); EOSINOPHILS ABSOLUTE AUTO 0.3 x10-3/uL (0.0-0.8); EOSINOPHILS PERCENT AUTO 3.4 % (0.6-8.1); LYMPHOCYTES ABSOLUTE AUTO 1.4 x10-3/uL (1.0-4.4); LYMPHOCYTES PERCENT AUTO 17.9 % (18.4-52.1); MEAN PLATELET VOLUME 8.3 fL (7.1-12.4); MONOCYTES ABSOLUTE AUTO 0.7 x10-3/uL (0.3-1.0); MONOCYTES PERCENT AUTO 9.4 % (4.4-15.7); NEUTROPHILS ABSOLUTE AUTO 5.4 x10-3/uL (1.5-6.3); NEUTROPHILS PERCENT AUTO 68.9 % (30.8-76.2); PLATELET COUNT,PLT 292 x10(3)uL (151-488); RED BLOOD CELL COUNT 4.78 x10(6)uL (3.60-5.20); RED CELL DISTRIBUTION WIDTH 13.2 % (12.3-16.5); WHITE BLOOD CELL COUNT,WBC 7.8 x10-3/uL (3.0-10.3)
[2025-03-10 18:53] LABS: BLOOD UREA NITROGEN,BUN 9 mg/dL (7-18); CARBON DIOXIDE,CO2 27 mmol/L (21-32); CHLORIDE,CL 104 mmol/L (100-110); CREATININE 0.9 mg/dL (0.55-1.02); ESTIMATED GFR 86 mL/min (>60); GLUCOSE RANDOM 105 mg/dL (80-116); POTASSIUM,K 4.1 mmol/L (3.5-5.3); SODIUM,NA 140 mmol/L (135-145)
[2025-03-10 18:59] LABS: A/G RATIO 0.8; ALANINE AMINOTRANSFERASE,ALT 58 U/L (12-36); ASPARTATE AMNIOTRANSFERASE,AST 29 IU/L (5-25); BILIRUBIN TOTAL 0.4 mg/dL (0.1-1.3); PROTEIN TOTAL,TP 7.9 g/dL (6.0-8.0)
[2025-03-10 19:16] VITALS: BP 119/70; PULSE 105
== END 2025-03-10 19:16 | disposition home or self-care (01) ==
LOC: FB.ED 17:58
DX: J20.9 Acute bronchitis, unspecified (principal); F17.200 Nicotine dependence, unspecified, uncomplicated; Z88.0 Allergy status to penicillin; Z79.899 Other long term (current) drug therapy
CPT/HCPCS: 36415; 71046; 80053; 85025; 85379; 94640; 99285; A9270; J7512; J7620; 99283

== ENCOUNTER 2025-03-14 03:42 | Emergency (ER) | payer BC ==
[2025-03-14 04:03] VITALS: BP 100/52; PULSE 76
== END 2025-03-14 04:08 | disposition home or self-care (01) ==
LOC: FB.ED 03:42
DX: A08.4 Viral intestinal infection, unspecified (principal); J20.9 Acute bronchitis, unspecified; Z79.899 Other long term (current) drug therapy; Z88.0 Allergy status to penicillin
CPT/HCPCS: 99283

== ENCOUNTER 2025-07-07 02:29 | Emergency (ER) | payer BC ==
[2025-07-07 02:43] VITALS: BP 117/53; PULSE 99
== END 2025-07-07 03:02 | disposition home or self-care (01) ==
LOC: FB.ED 02:29
DX: S90.31XA Contusion of right foot, initial encounter (principal); Z88.0 Allergy status to penicillin; Z79.899 Other long term (current) drug therapy; W20.8XXA Other cause of strike by thrown, projected or falling object, initial encounter
CPT/HCPCS: 73630-RT; 99283